=== PATIENT | male | born 1950 | race Caucasian/White ===

== ENCOUNTER 2018-08-17 15:00 | Observation (INO) | payer OTHER ==
--- OUTSIDE RECORDS SUMMARY | 2018-08-17 15:02 | XMS REPORT | Continuity of Care Document ---
:1950 Author Organization Interface Problems Problem Status Onset Date Classification Date Comments Source Reported Medications Medication Details Route Status Patient Ordering Order Source Instructions Provider Date Allergies, Adverse Reactions, Alerts Substance Category Reaction Severity Reaction Status Date Comments Source type Reported Immunizations Immunization Date Given Site Status Last Updated Comments Source Results Order Results Value Reference Date Interpretation Comments Source Name Range Vital Signs Vital Sign Value Date Comments Source Encounters Location Location Encounter Encounter Reason Attending ADM DC Status Source Details Type Number For Provider Date Date Visit Outpatient [id number] JORJE 08/13 [facility] [id number] JORJE 09/10 [facility] Procedures Procedure Code Date Perfomer Comments Source
--- NOTE | 2018-08-17 15:36 | RAD REPORT ---
EXAM DESCRIPTION: RAD - Chest Single View - 08/17/2018 3:29 pm CLINICAL HISTORY: dizziness Chest pain. COMPARISON: Chest Pa And Lat (2 Views) dated 02/28/2016; CHEST PA AND LAT 2 VIEW dated 01/16/2012 FINDINGS: Portable technique limits examination quality. The lungs are grossly clear. The heart is normal in size. No displaced fractures. IMPRESSION: No acute intrathoracic process suspected.
[2018-08-17] MEDS ORDERED: MECLIZINE HCL 12.5 MG TAB ONE (15:55)
[2018-08-17] MEDS ORDERED: DIAZEPAM 10 MG/2 ML INJ SYRINGE ONE ×2 (15:56→21:28)
--- NOTE | 2018-08-17 16:06 | RAD REPORT ---
EXAM DESCRIPTION: CT - Head Brain Wo Cont - 08/17/2018 3:43 pm CLINICAL HISTORY: DIZZINESS Drowsiness, hypertension COMPARISON: HEAD BRAIN W O CONTRAST dated 01/16/2012 TECHNIQUE: All CT scans are performed using dose optimization technique as appropriate and may inclu de automated exposure control or mA/KV adjustment according to patient size. FINDINGS: No intracranial hemorrhage, hydrocephalus or extra-axial fluid collection.No areas of brai n edema or evidence of midline shift. The paranasal sinuses and mastoids are clear. The calvarium is intact. IMPRESSION: No acute intracranial abnormality.
[2018-08-17 16:13] LABS: Absolute Lymphocytes (CBC) 0.9 K/uL (0.7-4.9); Absolute Monocytes 0.5 K/uL (0.1-1.3); Absolute Neutrophil 7.9 K/uL (1.8-8.0); Basophils % 0.2 % (0-1.3); Hematocrit 44.6 % (39.6-49.0); Lymphocytes % 9.4 % (15.3-44.8); MPV 9.5 fL (7.6-11.3); Monocytes % 5.3 % (3.3-12.3); RBC Red Blood Cell Count 4.84 M/uL (4.33-5.43)
[2018-08-17 16:26] LABS: Protime INR 1.02
[2018-08-17 16:33] LABS: ALT/SGPT 26 U/L (12-78); AST/SGOT 19 U/L (15-37); Albumin 3.8 g/dL (3.4-5.0); Alkaline Phosphatase 67 U/L (45-117); BUN Blood Urea Nitrogen 16 mg/dL (7-18); Bicarbonate 25 mmol/L (21-32); Bilirubin Direct 0.2 mg/dL (0-0.2); Bilirubin Total 0.5 mg/dL (0.2-1.0); Glucose Level 129 mg/dL (74-106); Magnesium 1.9 mg/dL (1.8-2.4); NT PRO-BNP 106 pg/mL (<125); Potassium 3.2 mmol/L (3.5-5.1); Sodium Level 141 mmol/L (136-145); Troponin (Emerg Dept Use Only) < 0.02 ng/mL (0.0-0.045)
--- NOTE | 2018-08-17 17:22 | EDPHYS ---
Physician Documentation [facility] Name: Alvin Beasley Age: 68 yrs Sex: Male : 1950 Arrival Date: 08/17/2018 Time: 15:04 Bed 7 Private MD: ED Physician Doyle Gomez HPI: 08/17 15:59 This 68 yrs old Male presents to ER via EMS with complaints of Dizziness. jr8 15:59 The patient presents with dizziness. Onset: The symptoms/episode began/occurred jr8 acutely, today. Context: occurred at home, occurred while the patient was walking. Modifying factors: The symptoms are alleviated by nothing, the symptoms are aggravated by movement of head, changing position. Associated signs and symptoms: The patient has no apparent associated signs or symptoms. Severity of symptoms: At their worst the symptoms were moderate in the emergency department the symptoms are unchanged. Patient's baseline: Neuro: alert and fully oriented, Motor: no deficits, Ambulation: walks without assistance, Speech: normal. The patient has experienced similar episodes in the past, several times, but today's symptoms are worse. The patient has not recently seen a physician. Patient stated that he has history of dizziness in past. Has seen physicians in the past for this but could not figure out diagnosis. Had acute onset today that felt much worse then normal . Historical: - Allergies: 15:12 No Known Allergies; bp - Home Meds: 15:12 amlodipine oral [Active]; Alprazolam Oral [Active]; bp - PMHx: 15:12 Hypertension; Anxiety; bp - Immunization history:: Adult Immunizations up to date. - Social history:: Smoking status: Patient/guardian denies using tobacco. - Ebola Screening: : Patient negative for fever greater than or equal to 101.5 degrees Fahrenheit, and additional compatible Ebola Virus Disease symptoms Patient denies exposure to infectious person Patient denies travel to an Ebola-affected area in the 21 days before illness onset No symptoms or risks identified at this time. ROS: 15:59 Eyes: Negative for injury, pain, redness, and discharge, ENT: Negative for injury, jr8 pain, and discharge, Neck: Negative for injury, pain, and swelling, Cardiovascular: Negative for chest pain, palpitations, and edema, Respiratory: Negative for shortness of breath, cough, wheezing, and pleuritic chest pain, Abdomen/GI: Negative for abdominal pain, nausea, vomiting, diarrhea, and constipation, Back: Negative for injury and pain, MS/Extremity: Negative for injury and deformity, Skin: Negative for injury, rash, and discoloration. 15:59 Neuro: Positive for dizziness, Negative for altered mental status, gait disturbance, headache, hearing loss, loss of consciousness, numbness, seizure activity, speech changes, syncope, near syncope, tingling, tinnitus, tremor, visual changes, weakness. Exam: 15:59 Eyes: Pupils equal round and reactive to light, extra-ocular motions intact. Lids and jr8 lashes normal. Conjunctiva and sclera are non-icteric and not injected. Cornea within normal limits. Periorbital areas with no swelling, redness, or edema. ENT: Nares patent. No nasal discharge, no septal abnormalities noted. Tympanic membranes are normal and external auditory canals are clear. Oropharynx with no redness, swelling, or masses, exudates, or evidence of obstruction, uvula midline. Mucous membranes moist. Neck: Trachea midline, no thyromegaly or masses palpated, and no cervical lymphadenopathy. Supple, full range of motion without nuchal rigidity, or vertebral point tenderness. No Meningismus. Cardiovascular: Regular rate and rhythm with a normal S1 and S2. No gallops, murmurs, or rubs. Normal PMI, no JVD. No pulse deficits. Respiratory: Lungs have equal breath sounds bilaterally, clear to auscultation and percussion. No rales, rhonchi or wheezes noted. No increased work of breathing, no retractions or nasal flaring. Abdomen/GI: Soft, non-tender, with normal bowel sounds. No distension or tympany. No guarding or rebound. No evidence of tenderness throughout. Back: No spinal tenderness. No costovertebral tenderness. Full range of motion. Skin: Warm, dry with normal turgor. Normal color with no rashes, no lesions, and no evidence of cellulitis. MS/ Extremity: Pulses equal, no cyanosis. Neurovascular intact. Full, normal range of motion. Neuro: Awake and alert, GCS 15, oriented to person, place, time, and situation. Cranial nerves II-XII grossly intact. Motor strength 5/5 in all extremities. Sensory grossly intact. Cerebellar exam normal. Vital Signs: 15:06 BP 142 / 77; Pulse 81; Resp 18; Pulse Ox 96% ; bp 15:30 BP 135 / 84; Pulse 75; Resp 11; Temp 98; Pulse Ox 96% ; Weight 81.65 kg; Height 5 ft. 2 bp in. (157.48 cm); 16:30 BP 136 / 80; Pulse 65; Resp 13; Pulse Ox 95% ; bp 17:21 BP 150 / 79; Pulse 69; Resp 16; Pulse Ox 96% ; bp 19:17 BP 134 / 73; Pulse 64; Resp 18 S; Pulse Ox 96% on R/A; jd3 15:30 Body Mass Index 32.92 (81.65 kg, 157.48 cm) bp MDM: 15:08 Patient medically screened. jr8 17:02 Data reviewed: vital signs, nurses notes, lab test result(s), EKG, radiologic studies, jr8 CT scan, plain films. Data interpreted: Pulse oximetry: on room air is 96 %. Interpretation: normal. Counseling: I had a detailed discussion with the patient and/or guardian regarding: the historical points, exam findings, and any diagnostic results supporting the discharge/admit diagnosis, lab results, radiology results. ED course: Patient not feeling better. Put a call out to Dr. Schwartz who he saw last week to see if he would be able to consult on case and have MRI done tomorrow or if he has any other suggestions at this point . 17:18 ED course: Both Dr. Schwartz and Dr. Conner aware of patient and willing to consult and jr admit for further neurologic evaluation . 08/17 15:08 Order name: Basic Metabolic Panel; Complete Time: 16:50 8 08/17 15:08 Order name: CBC with Diff; Complete Time: 17:34 08/17 15:08 Order name: LFT's; Complete Time: 16:50 8 08/17 15:08 Order name: Magnesium; Complete Time: 16:50 8 08/17 15:08 Order name: NT PRO-BNP; Complete Time: 16:50 8 08/17 15:08 Order name: PT-INR 08/17 15:08 Order name: Troponin (emerg Dept Use Only); Complete Time: 16:50 8 08/17 15:08 Order name: XRAY Chest (1 view); Complete Time: 15:50 [facility] 08/17 15:08 Order name: EKG; Complete Time: 15:09 08/17 15:24 Order name: CT Head Brain wo Cont; Complete Time: 16:07 08/17 17:33 Order name: Manual Differential; Complete Time: 17:34 EDMS 08/17 15:08 Order name: Cardiac monitoring; Complete Time: 15:50 08/17 15:08 Order name: EKG - Nurse/Tech; Complete Time: 15:50 08/17 15:08 Order name: IV Saline Lock; Complete Time: 15:59 08/17 15:08 Order name: Labs collected and sent; Complete Time: 15:59 08/17 15:08 Order name: O2 Per Protocol; Complete Time: 15:50 08/17 15:08 Order name: O2 Sat Monitoring; Complete Time: 15:50 08/17 17:28 Order name: CONS Physician Consult EDMS Administered Medications: 15:35 Drug: Meclizine 25 mg Route: PO; bp 17:19 Follow up: Response: No adverse reaction; Marked relief of symptoms bp 15:35 Drug: Valium 2.5 mg Route: IVP; Site: left forearm; bp 17:19 Follow up: Response: No adverse reaction bp 17:30 Drug: Potassium Chloride 20 mEq Route: PO; bp 17:48 Follow up: Response: No adverse reaction bp Disposition: 08/18 07:24 Co-signature as Attending Physician, Doyle Gomez MD I agree with the assessment and heidi plan of care. Disposition: 08/17/18 17:20 Hospitalization ordered by Denis Conner for Observation. Preliminary diagnosis are Vertigo, Ataxia, unspecified. - Bed requested for Telemetry/MedSurg (observation). - Status is Observation. jd3 - Condition is Stable. - Problem is new. - Symptoms have improved. UTI on Admission? No Signatures: Dispatcher [employer] EDMaria Elena Domingo RN RN dw Anderson, Corey, MD MD cha Roszak, Josh, PA PA jr8 Beto Gómez RN RN jAlex Salgado RN RN bp Corrections: (The following items were deleted from the chart) 08/17 17:55 17:20 Hospitalization Ordered by Denis Conner MD for Observation. Preliminary diagnosis is dw Vertigo; Ataxia, unspecified. Bed requested for Telemetry/MedSurg (observation). Status is Observation. Condition is Stable. Problem is new. Symptoms have improved. UTI on Admission? No. jr8 20:28 17:55 08/17/2018 17:20 Hospitalization Ordered by Denis Conner MD for Observation. jd3 Preliminary diagnosis is Vertigo; Ataxia, unspecified. Bed requested for Telemetry/MedSurg (observation). Status is Observation. Condition is Stable. Problem is new. Symptoms have improved. UTI on Admission? No. dw
--- NOTE | 2018-08-17 17:22 | ER ---
Nurse's Notes [facility] Name: Alvin Beasley Age: 68 yrs Sex: Male : 1950 Arrival Date: 08/17/2018 Time: 15:04 Bed 7 Private MD: Diagnosis: Vertigo;Ataxia, unspecified Presentation: 08/17 15:05 Presenting complaint: EMS states: DIZZINESS. Transition of care: patient was not bp received from another setting of care. Onset of symptoms is unknown. Risk Assessment: Do you want to hurt yourself or someone else? Patient reports no desire to harm self or others. Initial Sepsis Screen: Does the patient meet any 2 criteria? No. Patient's initial sepsis screen is negative. Does the patient have a suspected source of infection? No. Patient's initial sepsis screen is negative. Care prior to arrival: IV initiated. 20 GA, in the left forearm. 15:05 Method Of Arrival: EMS: [facility] bp 15:05 Acuity: NICOLÁS 3 bp Triage Assessment: 15:12 General: Appears in no apparent distress. comfortable, Behavior is cooperative, bp appropriate for age, anxious. Pain: Complains of pain in anterior aspect of left upper chest. EENT: No deficits noted. Neuro: Level of Consciousness is awake, alert, obeys commands, Oriented to person, place, time, situation, Appropriate for age In Home Tutor are equal bilaterally. Cardiovascular: Rhythm is sinus rhythm. Respiratory: Airway is patent Respiratory effort is even, unlabored, Respiratory pattern is regular, symmetrical. GI: No signs and/or symptoms were reported involving the gastrointestinal system. : No signs and/or symptoms were reported regarding the genitourinary system. Derm: No deficits noted. Musculoskeletal: Circulation, motion, and sensation intact. Range of motion: intact in all extremities. Historical: - Allergies: 15:12 No Known Allergies; bp - Home Meds: 15:12 amlodipine oral [Active]; Alprazolam Oral [Active]; bp - PMHx: 15:12 Hypertension; Anxiety; bp - Immunization history:: Adult Immunizations up to date. - Social history:: Smoking status: Patient/guardian denies using tobacco. - Ebola Screening: : Patient negative for fever greater than or equal to 101.5 degrees Fahrenheit, and additional compatible Ebola Virus Disease symptoms Patient denies exposure to infectious person Patient denies travel to an Ebola-affected area in the 21 days before illness onset No symptoms or risks identified at this time. Screenin:08 Abuse screen: Denies threats or abuse. Denies injuries from another. Nutritional bp screening: No deficits noted. Tuberculosis screening: No symptoms or risk factors identified. Fall Risk None identified. Assessment: 15:15 General: Appears in no apparent distress. comfortable, Behavior is cooperative, bp appropriate for age, anxious. Pain: Denies pain. Neuro: Level of Consciousness is awake, alert, obeys commands, Oriented to person, place, time, situation, Appropriate for age. Neuro: Reports dizziness. Cardiovascular: No deficits noted. Respiratory: Airway is patent Respiratory effort is even, unlabored, Respiratory pattern is regular, symmetrical. GI: No signs and/or symptoms were reported involving the gastrointestinal system. : No signs and/or symptoms were reported regarding the genitourinary system. EENT: No deficits noted. Derm: No deficits noted. Musculoskeletal: Circulation, motion, and sensation intact. Range of motion: intact in all extremities. 17:22 Reassessment: ALL CURRENT ORDERS COMPLETED, VS STABLE ON MONITOR. ADMIT IN PROCESS. bp 19:17 Reassessment: Patient appears in no apparent distress at this time. No changes from jd3 previously documented assessment. Patient and/or family updated on plan of care and expected duration. Pain level reassessed. Patient is alert, oriented x 3, equal unlabored respirations, skin warm/dry/pink. Vital Signs: 15:06 BP 142 / 77; Pulse 81; Resp 18; Pulse Ox 96% ; bp 15:30 BP 135 / 84; Pulse 75; Resp 11; Temp 98; Pulse Ox 96% ; Weight 81.65 kg; Height 5 ft. 2 bp in. (157.48 cm); 16:30 BP 136 / 80; Pulse 65; Resp 13; Pulse Ox 95% ; bp 17:21 BP 150 / 79; Pulse 69; Resp 16; Pulse Ox 96% ; bp 19:17 BP 134 / 73; Pulse 64; Resp 18 S; Pulse Ox 96% on R/A; jd3 15:30 Body Mass Index 32.92 (81.65 kg, 157.48 cm) bp ED Course: 15:04 Patient arrived in ED. bp 15:06 Triage completed. bp 15:08 Brodie Molina PA is PHCP. jr8 15:08 Doyle Gomez MD is Attending Physician. jr8 15:23 Alex Dial, RN is Primary Nurse. bp 15:27 X-ray completed. Portable x-ray completed in exam room. Patient tolerated procedure sg4 well. 15:28 XRAY Chest (1 view) In Process Unspecified. EDMS 15:43 CT Head Brain wo Cont In Process Unspecified. EDMS 15:53 EKG done, by ED staff, reviewed by Brodie TORO. jb1 15:59 Maintain EMS IV. Dressing intact. Good blood return noted. Site clean \T\ dry. Gauge \T\ bp site: 20 gauge left fa. 16:08 Patient has correct armband on for positive identification. Bed in low position. Call bp light in reach. Side rails up X2. Adult w/ patient. 17:20 Denis Conner MD is Hospitalizing Provider. jr8 19:26 Arm band placed on. jd3 19:48 No provider procedures requiring assistance completed. Patient admitted, IV remains in jd3 place. Administered Medications: 15:35 Drug: Meclizine 25 mg Route: PO; bp 17:19 Follow up: Response: No adverse reaction; Marked relief of symptoms bp 15:35 Drug: Valium 2.5 mg Route: IVP; Site: left forearm; bp 17:19 Follow up: Response: No adverse reaction bp 17:30 Drug: Potassium Chloride 20 mEq Route: PO; bp 17:48 Follow up: Response: No adverse reaction bp Outcome: 17:20 Decision to Hospitalize by Provider. jr8 19:48 Admitted to Med/surg accompanied by tech, via stretcher, room 224, with chart, Report jd3 called to Grace RUIZ 19:48 Condition: stable 19:48 Instructed on the need for admit, Demonstrated understanding of instructions. 20:28 Patient left the ED. jd3 Signatures: Dispatcher [employer] EDMS Eugene Sheffield jb1 Brodie Molina PA PA jr8 Beto Gómez RN RN Alex Daly, RN RN Rupinder Madison sg4 Corrections: (The following items were deleted from the chart) 17:22 15:30 BP 142 / 77; Pulse 81bpm; Resp 18bpm; Pulse Ox 96%; bp bp 17:23 17:22 Reassessment: ALL CURRENT ORDERS COMPLETED, VS STABLE ON MONITOR. DISPO PENDING bpbp
[2018-08-17 17:33] LABS: Blood Morphology Comment NOT SEEN (NOT SEEN); Platelet Estimate ADEQ; Platelets, Giant FEW
[2018-08-17] MEDS ORDERED: POTASSIUM CL SA 10 MEQ TAB PO ONE (17:51)
[2018-08-17] MEDS ORDERED: ACETAMINOPHEN 500 MG TAB PO PRN (19:58)
[2018-08-17] MEDS ORDERED: HYDROCODONE/APAP 5/325 MG TAB PO PRN (19:58)
[2018-08-17] MEDS ORDERED: ONDANSETRON 4 MG/2 ML VIAL IV PRN (19:58)
[2018-08-17] MEDS ORDERED: MECLIZINE HCL 12.5 MG TAB PO PRN (21:00)
[2018-08-17] MEDS: NA CHLORIDE 0.9% 1,000 ML IV SCH (21:10)
[2018-08-17] MEDS: DIAZEPAM 10 MG/2 ML INJ SYRINGE IV SCH ×2 (21:34→23:59)
[2018-08-17 23:54] VITALS: BMI 32.9
[2018-08-17 23:56] LABS: Urine Appearance CLEAR; Urine Bilirubin NEGATIVE (NEG); Urine Blood NEGATIVE (NEG); Urine Color YELLOW; Urine Glucose NEGATIVE (NEG); Urine Protein NEGATIVE (NEG); Urine Specific Gravity 1.015 (1.005-1.030); Urine Urobilinogen 0.2 mg/dL (0.2-1.0)
[2018-08-17 23:59] LABS: Urine Microscopic Reflex NO UMIC
[2018-08-18] MEDS: DIAZEPAM 10 MG/2 ML INJ SYRINGE IV SCH (05:20)
--- NOTE | 2018-08-18 06:26 | EKG ---
Test Date: 2018-08-17 Test Time: 15:48:55 Pot Washer: AMY MEASUREMENT RESULTS: Intervals: Rate: 74 FL: 170 QRSD: 104 QT: 414 QTc: 459 [place]: P: 47 FL: 170 QRS: -55 T: 42 INTERPRETIVE STATEMENTS: Normal sinus rhythm Left anterior fascicular block Abnormal ECG Compared to ECG 05/09/2017 13:19:16 Incomplete right bundle-branch block no longer present Electronically Signed On 08-18-18 06:18:58 HUMAN [employer]CTORS ENGINEER by Juan Arthur
[2018-08-18 06:43] LABS: Absolute Lymphocytes (CBC) 1.8 K/uL (0.7-4.9); Absolute Monocytes 0.4 K/uL (0.1-1.3); Absolute Neutrophil 3.3 K/uL (1.8-8.0); Basophils % 0.4 % (0-1.3); Hematocrit 41.9 % (39.6-49.0); Lymphocytes % 31.3 % (15.3-44.8); MPV 9.5 fL (7.6-11.3); Monocytes % 7.8 % (3.3-12.3); RBC Red Blood Cell Count 4.57 M/uL (4.33-5.43)
[2018-08-18 06:52] LABS: Potassium 4.4 mmol/L (3.5-5.1)
[2018-08-18] MEDS ORDERED: PNEUMOCOCCAL VACCINE 0.5 ML IMVAC ONE (08:00)
[2018-08-18] MEDS ORDERED: ASPIRIN EC 81 MG TAB PO SCH (09:00)
[2018-08-18] MEDS: NA CHLORIDE 0.9% 1,000 ML IV SCH (09:06)
--- NOTE | 2018-08-18 10:03 | RAD REPORT ---
EXAM DESCRIPTION: MRI - Brain Wo Cont - 08/18/2018 8:21 am CLINICAL HISTORY: Ataxia and dizziness COMPARISON: August 17, [address] TECHNIQUE: Axial, sagittal, and coronal magnetic resonance images of the brain were obtained. FINDINGS: No abnormal signal is present within the brain. Diffusion-weighted/ADC mapping does not reveal evidence of acute infarction. The ventricles are normal caliber. An extra-axial fluid collection is not noted. Fluid within the sinuses/mastoids is not noted IMPRESSION: Unremarkable unenhanced brain MRI
--- NOTE | 2018-08-18 10:05 | RAD REPORT ---
EXAM DESCRIPTION: USCarotid Artery Bilateral08/18/2018 8:44 am CLINICAL HISTORY: Ataxia/dizziness COMPARISON: None FINDINGS: The velocity of the right internal carotid artery equals 65 cm/sec. The right ICA/CCA rati o 1 The velocity of the left internal carotid artery equals 67 cm/sec. The left ICA/CCA ratio 0.8 Mild plaque is present within the carotid arteries. The vertebral arteries demonstrate antegrade flow IMPRESSION: Mild plaque within the carotid arteries without evidence of a hemodynamically significan t stenosis NASCET criteria used. Mild 0-49% stenosis Moderate 50-69% stenosis Severe 70-99% stenosis
[2018-08-18] MEDS ORDERED: VALPROATE SODIUM INJ 500 MG in NA CHLORIDE 0.9% 100 ML IV ONE (14:00)
[2018-08-18 15:14] VITALS: O2SAT 95
[2018-08-18 17:40] VITALS: BP 123/71; TEMP 98.8
--- NOTE | 2018-08-18 19:18 | CON ---
Date of Consultation: 08/18/2018 Time: 1300 hours Reason: Vertigo. History: This is a 68-year-old gentleman we had just seen in the office last week. He has a fairly long history of intermittent vertigo with some associated nausea. We were planning a workup as an ou tpatient, but yesterday, he walked out to the yard, was looking at some orange trees and while walkin g back began to notice very prominent what he describes as dizziness. It is not really positional, b ut it does have a slight twisting component. There was associated nausea, photophobia, came into the house, lied down, but problem did not improve, in fact it worsened. He developed slight headache. He did not notice dysarthria or extremity weakness, but he was feeling very lightheaded and woozy wit h some slight blurry vision, came to the emergency department, meclizine, Valium did not alleviate th e problem. CT scan of the brain negative/normal labs, EKG normal. He was admitted for observation t too. He feels quite a bit better. Brain MRI is normal. Carotid Dopplers, no stenosis. White coun t 5.6, hemoglobin 14, and platelets 258. Liver function tests were normal. Creatinine 0.92. Consul tation was requested. Past Medical History: Hypertension, history of kidney stones. Medications: Normally Prilosec, amlodipine, multivitamin, Xanax. Social History: . Drinks on occasion. Normally independent in activities of daily living. Family History: Does have a child who suffers from migraine headaches. Review of Systems: General: Generally good health. Eyes: Blurry vision, now resolved. Ears, Nose, Throat: Negative. Cardiovascular: Hypertension. Pulmonary: Negative. GI: Negative. : Negative. Musculoskeletal: Negative. Neurologic: As noted. Psychiatric: Negative. Endocrine: Negative. Hematologic: Negative. Physical Examination: Vital Signs: 98.1, 58, 18, 141/75. General: Pleasant gentleman, lying in bed, in no distress. Awake, alert, oriented. Heart: Sinus rhythm. Lungs: Clear. Abdomen: Soft. Bowel sounds present. Neck: No carotid bruits. HEENT: Pupils reactive. Ocular motion full. Visual concepcion full. Facial strength and sensation nor mal. Tongue protrudes evenly. Soft palate elevates symmetrically bilaterally. Extremities: Strength full. Sensation intact. Reflexes, 1 to 2 out of 4. Toes are downgoing. Cerebellar: Demonstrates no ataxia. Impression: Vertigo/dizziness, headaches now resolved, problem has been ongoing for some time. I saldana spect that the underlying etiology may be a migrainous phenomenon. I would continue aspirin. We marvin l give him 500 mg of Depakote IV and start 500 mg Depakote at night. Check a sedimentation rate now. I think he could likely safely be discharged to home later on today. If episodes persist despite t hese interventions, EEG may be helpful, although I suspect somewhat low yield. We will continue to follow with you. TRINI/PRICILLA Voice ID: [id number] Report ID: [id number]
[2018-08-18] MEDS ORDERED: DIVALPROEX DR 500MG TAB PO SCH (21:00)
--- NOTE | 2018-08-19 04:04 | SS ---
Date of Discharge: 08/18/2018 Chief Complaint: Feeling weak and dizzy. History Of Present Illness: This is a 68-year-old male patient who has been having some complaints o f feeling dizzy and weak lately and he has been under care of Dr. Schwartz for this, and so far no defin ite problem has been detected. He came into emergency room yesterday with worsening of his symptoms. After he was evaluated in the ER, he was admitted to hospital. While he was in the emergency room, he also complained of feeling like as if he was having palpitation, heart racing type of feeling and his who is a nurse was there with him at bedside noted on the monitor that his heart rate was a round 60 but monitor had mentioned something like a V-tach and obviously we do not have any rhythm st rips, but I believe that could be artifact as the ER staff when they contacted me yesterda y, they would have reported any kind of cardiac arrhythmia and so far on the athletic monitor, he cox s not had any cardiac arrhythmia. He sees his panel lay up worker Dr. Glass regularly and he had a stress test, Holter monitor, echocardiogram, etc. done sometime last year with his panel lay up worker and I have advised him to follow up with his panel lay up worker to get another 24-hour Holter monitor done upon discha rgfarshad. Denies any headache. No tingling, numbness. He has generalized weakness associated with this dizzy feeling. His dizziness is not associated with any change of position, even lying in bed when I saw him today, he kept on having that feeling of being dizzy. No visual complaints. Medications: List reviewed. Review of Systems: SIZE MARKER: As mentioned above. Constitutional: As mentioned above. All other systems reviewed and negative. Allergies: NO KNOWN ALLERGIES. Past Surgical History: Negative. Family History: Not pertinent. Social History: Negative for smoking or alcohol use. Past Medical History: Significant for hypertension, hyperlipidemia, impaired fasting glucose, insomn ia. Physical Examination: Vital Signs: Temperature 98.7, pulse 52, respiratory rate 16, blood pressure 120/70, height 5 feet 2 inches, weight 180 pounds and height according to our system is not accurate height as the patient i s taller than recorded height. General: Awake, alert, oriented, not in distress. HEENT: Head atraumatic, normocephalic. Conjunctivae nonerythematous. Sclerae white. Mouth, no thr ush or edema noted. Ears/Nose, no mass, lesion, discharge noted. Neck: Supple. No JVD, lymph nodes, bruit, thyromegaly noted. Lungs: Bilateral good equal air entry. Clear to auscultation. No rhonchi. No rales. Heart: Normal heart sounds, no murmur or gallop. Abdomen: Soft, bowel sounds normal. No guarding, rigidity, tenderness, mass, hepatosplenomegaly, dis tention, or bruit noted. Extremities: No leg edema. No calf tenderness. Skin: No rash, ulcer, cellulitis. Lymphatics: No lymph node enlargement in neck, supraclavicular, infraclavicular region. Neuro: No focal neurological deficit. Chest: Unremarkable. External Genitalia: Deferred. Rectal: Deferred. Laboratory Data: Yesterday white count 9.3, hemoglobin 15, platelets 257. This morning white count 5.6, hemoglobin 14.4, platelets 258. Yesterday sodium 141, potassium 3.2, chloride 105, bicarb 25, B UN 16, creatinine 0.98, glucose 129. Liver function tests unremarkable. Today sodium 144, potassium 4.4, chloride 109, bicarb 30, BUN 9, creatinine 0.92, glucose 107. Yesterday troponin was less than 0.02. Urinalysis negative. EKG: No acute ST-T changes. Sinus rhythm. CAT scan of the head negat rebekah for any acute intracranial changes. Chest x-ray, no acute cardiopulmonary changes. MRI of the b rain done today shows no acute intracranial changes. Carotid Doppler shows some carotid artery plaqu ing. No evidence of hemodynamically significant stenotic lesion. Hospital Course: The patient was evaluated in the ER. He was admitted to the hospital. ER had star davion him on Valium 2 mg IV every 6 hours, which I have discontinued today. Neurology consultation was requested from Dr. Schwartz who evaluated the patient this afternoon and he has released the patient to go home from Neurology point of view with new prescription of Depakote and medically he is stable fo r discharge. His home blood pressure which was brought in by patient's reviewed. Last 2 to 3 d ays, his blood pressure was elevated but there is no correlation between elevated blood pressure and his symptoms. But considering at least elevated blood pressure, I have asked him to increase the dos e of his amlodipine. He takes amlodipine 5 mg 1 tablet in the morning and half tablet in the evening and I have advised him to take 1 tab twice a day. I have also asked the patient and his that h e should follow up with his panel lay up worker upon discharge to get 24-hour Holter monitor done, continue to follow with Dr. Schwartz per his instruction and follow up at my office in 1 month with his home bloo d pressure readings. The patient reported that he takes alprazolam at home but it is not helping him with his insomnia problem. So, I asked him to discontinue alprazolam and I have written the prescri ption for zolpidem 5 mg p.o. at bedtime. Final Diagnoses: 1.Dizziness. 2.Generalized weakness. 3.Hypertension. 4.Hypokalemia. 5.Hyperlipidemia. 6.Impaired fasting glucose. 7.Insomnia. JOY/MODL Voice ID: [id number] Report ID: [id number]
== END 2018-08-18 17:25 | disposition home or self-care (01) ==
LOC: ER 15:00 → ERHOLD 17:40 → 2ND 19:43
PROVIDERS: ADMIT Internal Medicine; ATTEND Internal Medicine
DX: R42 Dizziness and giddiness (principal); R53.1 Weakness; I10 Essential (primary) hypertension; E87.6 Hypokalemia; E78.5 Hyperlipidemia, unspecified; G47.00 Insomnia, unspecified; Z23 Encounter for immunization
CPT/HCPCS: 36415; 70450; 70551; 71045; 80048 ×2; 80076; 81003; 83735; 83880; 84484; 85025 ×2; 85610; 85652; 90670; 93005; 93880; 96374; 99285; G0009; G0378 ×2; J3360 ×3; J7030 ×2